=== PATIENT | female | born 1975 ===

== ENCOUNTER 2022-01-10 22:05 | Emergency (ER) | payer SELFPAY ==
[2022-01-10 23:58] LABS: ANION GAP 12.3 mEq/L (7-13)
[2022-01-11] MEDS ORDERED: Iopamidol 612 MG/ML 100 ML Bottle IVPUSH ONE (01:08)
== END 2022-01-11 01:24 | disposition left against medical advice (07) ==
LOC: DL.ED 22:05
DX: R10.84 Generalized abdominal pain (principal); D64.9 Anemia, unspecified; D72.819 Decreased white blood cell count, unspecified; Z91.09 Other allergy status, other than to drugs and biological substances; Z77.22 Contact with and (suspected) exposure to environmental tobacco smoke (acute) (chronic)
CPT/HCPCS: 36415; 80053; 81001; 81025; 85025; 99283; 99284